=== PATIENT | female | born 1965 | race Caucasian/White ===

== ENCOUNTER 2018-01-02 08:58 | Day surgery (SDC) | payer OTHER ==
[2018-01-02] MEDS ORDERED: Lactated Ringer's 500 ML IV ONE (09:24)
[2018-01-02] MEDS ORDERED: Propofol 10 mg/ml Inj (20 ML) ONE (10:42)
[2018-01-02 11:28] VITALS: BP 106/74; PULSE 72; RESP 14; TEMP 97.3; O2SAT 97
== END 2018-01-02 11:28 | disposition home or self-care (01) ==
LOC: H.ENDO 08:58
PROVIDERS: ATTEND Internal Medicine Gastroenterology
DX: Z12.11 Encounter for screening for malignant neoplasm of colon (principal); E66.01 Morbid (severe) obesity due to excess calories; K64.0 First degree hemorrhoids
CPT/HCPCS: 45378; J2001; J2704; J7120